=== PATIENT | female | born 1985 | race African-American/Black ===

== ENCOUNTER 2024-07-29 14:32 | Emergency (ER) | payer MEDICAID ==
[~2024-07-29] VITALS: Ht 160 cm; Wt 80.0 kg
[2024-07-29 14:49] VITALS: BP 126/88; PULSE 90; RESP 18; TEMP 98.6; O2SAT 98
== END 2024-07-29 15:27 | disposition left against medical advice (07) ==
LOC: ER 14:45
DX: R53.1 Weakness (principal); Z53.21 Procedure and treatment not carried out due to patient leaving prior to being seen by health care provider
CPT/HCPCS: 93005; 99283

== ENCOUNTER 2024-11-03 17:02 | Emergency (ER) | payer MEDICAID ==
[~2024-11-03] VITALS: Ht 165.1 cm; Wt 78.0 kg
[2024-11-03 17:06] VITALS: BP 170/108; PULSE 78; RESP 18; TEMP 36.8; O2SAT 99
[2024-11-03] MEDS ORDERED: AMLO5TAB5 MT (18:18)
== END 2024-11-03 18:25 | disposition home or self-care (01) ==
LOC: ER 17:02
DX: Z76.0 Encounter for issue of repeat prescription (principal); I10 Essential (primary) hypertension; I48.91 Unspecified atrial fibrillation
CPT/HCPCS: 99283